=== PATIENT | male | born 1990 | race Caucasian/White ===

== ENCOUNTER 2020-11-13 11:01 | Emergency (ER) | payer OTHER ==
[~2020-11-13] VITALS: Ht 182.9 cm; Wt 136.1 kg
[2020-11-13] MEDS ORDERED: Bactrim Ds Tab1 EACH PO (12:39)
== END 2020-11-13 12:43 | disposition home or self-care (01) ==
LOC: ER 11:01
DX: L03.317 Cellulitis of buttock (principal); F17.200 Nicotine dependence, unspecified, uncomplicated
CPT/HCPCS: 99283